=== PATIENT | male | born 2000 | race Caucasian/White ===

== ENCOUNTER → 2019-09-24 | Outpatient (CLI) | payer BC | END | disposition home or self-care (01) | LOC: LABWHC1 07:17 | PROVIDERS: ATTEND Family Medicine | DX: Z20.828 Contact with and (suspected) exposure to other viral communicable diseases (principal) | CPT/HCPCS: 87635 ==

== ENCOUNTER 2020-01-03 02:59 | Emergency (ER) | payer BC ==
[2020-01-03 03:07] VITALS: RESP 18
[2020-01-03] MEDS ORDERED: IBUPROFEN 400 MG TAB PO STA (03:15)
--- NOTE | 2020-01-03 03:19 | ED ---
Fall HPI - General Chief Complaint: Fall Stated Complaint: Knee Pain Time Seen by Provider: 01/03/20 03:06 Source: patient, EMS Mode of arrival: EMS - History of Present Illness Initial Comments: This patient is 19-year-old man who presents to have evaluation of his right knee. The patient states that he had tackled a friend of his to keep the front from running into the street, and when he did he believes his knee was twisted. He complains of pain to the medial aspect along the inferior anterior aspect of the knee. Patient states the pain gets worse if he fully straighten the leg. He is able to bear a little weight but states makes pain worse. No previous injury or surgery. No other injuries MD Complaint: fall -: minutes(s) When Fall Occurred: just prior to arrival Place Fall Occurred: street Loss of Consciousness: none Prolonged Down Time?: no Symptoms Prior to Fall: none Location - Extremities: Right: Knee Severity: moderate Quality: aching Context: alcohol use - Related Data Previous Rx's Medication Instructions Recorded Hydrocodone/Acetaminophen [[place] 1 each PO Q6HR PRN #20 tab 01/03/20 5-325] Ibuprofen 800 mg PO TID #20 tablet 01/03/20 Allergies Allergy/AdvReac Type Severity Reaction Status Date / Time cat dander Allergy Itching Verified 01/03/20 03:13 Review of Systems ROS Statement: Those systems with pertinent positive or pertinent negative responses have been documented in the HPI. ROS Other: All systems not noted in ROS Statement are negative. Respiratory: Denies: dyspnea Cardiovascular: Denies: chest pain Gastrointestinal: Denies: abdominal pain Musculoskeletal: Reports: as per HPI, joint swelling, arthralgia. Denies: back pain Neurological: Denies: headache, weakness, numbness Past Medical History Past Medical History: Seizure Disorder Additional Past Medical History / Comment(s): Pt states he had a grand Mal seizure when he was 10 years old. History of Any Multi-Drug Resistant Organisms: None Reported Additional Past Surgical History / Comment(s): Pt states he had "a screw put in my right ankle when I was 15 years old and it was removed a while later" Past Psychological History: Anxiety, Depression Smoking Status: Former smoker Past Alcohol Use History: Occasional Past Drug Use History: None Reported General Exam Limitations: no limitations General appearance: alert, in no apparent distress Head exam: Present: atraumatic, normocephalic Right Hip exam: Present: normal inspection, full ROM Upper Leg exam: Present: normal inspection, full ROM Knee exam: Present: tenderness, swelling, effusion, pain/laxity with valgus. Absent: full ROM, abrasion, laceration, ecchymosis, deformity, erythema, full knee extension Lower Leg exam: Present: normal inspection, full ROM. Absent: tenderness, swelling Ankle exam: Present: normal inspection, full ROM. Absent: tenderness, swelling Foot/Toe exam: Present: normal inspection, full ROM. Absent: tenderness, swelling Neurovascular tendon exam: Present: no vascular compromise. Absent: pallor Course Vital Signs 01/03/20 01/03/20 03:01 04:06 Temperature 98.6 F 98.0 F Pulse Rate 113 H 97 Respiratory 18 18 Rate Blood Pressure 148/88 147/76 O2 Sat by Pulse 98 98 Oximetry Disposition Clinical Impression: Knee sprain Disposition: HOME SELF-CARE Condition: Good Instructions (If sedation given, give patient instructions): Knee Sprain (DC) Prescriptions: Ibuprofen 800 mg PO TID #20 tablet Hydrocodone/Acetaminophen [[place] 5-325] 1 each PO Q6HR PRN #20 tab PRN Reason: Pain Is patient prescribed a controlled substance at d/c from ED?: Yes Referrals: Lore De MD [Primary Care Provider] - 1-2 days Cj Jones DO [Medical Doctor] - 1-2 days
[2020-01-03] MEDS: HYDROcodone/APAP 5-325MG 1 EACH TAB PO STA ×2 (03:21→03:26)
--- NOTE | 2020-01-03 04:13 | XR ---
EXAMINATION TYPE: XR knee complete RT DATE OF EXAM: 01/03/2020 COMPARISON: NONE HISTORY: Knee pain TECHNIQUE: 4 views FINDINGS: There is no fracture nor dislocation. Joint spaces are normal. There is no evidence of join t effusion. IMPRESSION: Negative right knee exam.
[2020-01-03 04:17] VITALS: BP 147/76; PULSE 97; TEMP 98
== END 2020-01-03 04:50 | disposition home or self-care (01) ==
LOC: EC 02:59
DX: S83.91XA Sprain of unspecified site of right knee, initial encounter (principal); Z87.891 Personal history of nicotine dependence; Z91.048 Other nonmedicinal substance allergy status; X37.1XXA Tornado, initial encounter; Y93.02 Activity, running; Y92.89 Other specified places as the place of occurrence of the external cause
CPT/HCPCS: 73562; 99284; L1830

== ENCOUNTER → 2020-04-05 | Outpatient (CLI) | payer BC | END | disposition home or self-care (01) | LOC: LABWHC1 13:31 | PROVIDERS: ATTEND Family Medicine | DX: Z20.828 Contact with and (suspected) exposure to other viral communicable diseases (principal) | CPT/HCPCS: U0003; C9803 ==

== ENCOUNTER → 2024-07-07 | Outpatient (CLI) | payer BC ==
--- NOTE | 2024-07-08 06:43 | US ---
EXAMINATION TYPE: US scrotum with doppler. DATE OF EXAM: 07/07/2024 COMPARISON: US 2009 CLINICAL INDICATION: Male, 23 years old with history of N50.812 LEFT TESTICULAR PAIN; LT pain and ursula ma 1 month ago TECHNIQUE: Grayscale, color Doppler and spectral Doppler imaging of the scrotum. FINDINGS: EXAM MEASUREMENTS: TESTICLES: Right Testicle: 5.5x2.8x3.6 cm Left Testicle: 5.0x2.4x3.3 cm EPIDIDYMIS HEAD: Right Epididymis: 1.0 cm Left Epididymis: 1.0 cm Doppler performed to assess for testicular vascularity; good bilateral color flow and spectral wavefo karoline are seen. Presence of hydroceles: no Presence of varicoceles: no IMPRESSION: Symmetric blood flow to both testicles is noted. Unremarkable study. [facility], , 07/08/2024 6:40 AM
== END | disposition home or self-care (01) ==
LOC: RADUSWWP 14:29
PROVIDERS: ATTEND Family Medicine
DX: N50.89 Other specified disorders of the male genital organs (principal)
CPT/HCPCS: 76870; 93975

== ENCOUNTER → 2024-08-05 | Outpatient (CLI) | payer BC ==
[2024-08-05 15:50] VITALS: BP 142/80; PULSE 100; RESP 16; TEMP 98.5
--- NOTE | 2024-08-05 16:14 | P.SLEEP ---
History of Present Illness H&P Date: 08/05/24 A healthy 23-year-old male patient coming in for sleep apnea evaluation. Over the past few years, the patient was noted to have snoring and sleep fragmentation where he wakes up choking and gasping for air. He is having difficulty sleeping on his back as the patient wakes up frequently with a chok ing sensation. He is able to generate sleep after arousals without any major difficulties. He goes to bed at around 11 PM wakes up 7:30 AM in the morning. He has excessive fatigue and sleepiness during the day. No sleepwalking. No sleep talking. He is a nose breather. No significant dryness in his mouth. No restlessness in lower extremities. No anxiety or depression. No other comorbidities. 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 He does not fall asleep while driving. His current [place] score is only at 2. He smokes weed occasionally. No substance abuse. No alcoholism. No tobacco consumption. No head trauma. No sleep paralysis. No hallucinations. No cataplexy. He is waking up tired in the morning and is having some difficulty with concentration and memory. No nighttime shortness of breath or chest pain or palpitations. The patient has lost concern amount of weight over the years. His current weight is 177 pounds. He used to work at [employer] where he ate a lot of fast food in his early 20s. His weight was up to 220 pounds and currently is down to 277 with a body mass index of 21.8. Review of Systems Constitutional: Reports daytime sleepiness, Reports fatigue Eyes: denies as per HPI, denies blurred vision, denies bulging eye, denies decreased vision, denies diplopia, denies discharge, denies dry eye, denies irritation, denies itching, denies pain, denies photophobia, denies loss of peripheral vision, denies loss of vision, denies tunnel vision/blind spots Ears: deny: decreased hearing, ear discharge, earache, tinnitus Ears, nose, mouth and throat: Reports as per HPI Breasts: absent: as per HPI, gynecomastia Cardiovascular: Reports as per HPI Respiratory: Reports snoring Gastrointestinal: Reports as per HPI Genitourinary: Reports as per HPI Musculoskeletal: Reports as per HPI Musculoskeletal: absent: ankle pain, ankle stiffness, ankle swelling, as per HPI, elbow pain, elbow stiffness, elbow swelling, foot pain, foot stiffness, foot swelling, hand pain, hand stiffness, hand swelling, hip pain, hip stiffness, hip swelling, knee pain, knee stiffness, knee swelling, shoulder pain, shoulder stiffness, shoulder swelling, wrist pain, wrist stiffness, wrist swelling Integumentary: Reports as per HPI Neurological: Reports as per HPI Psychiatric: Reports change in sleep habits, Reports hypersomnia, Reports sleep disturbances Endocrine: Reports as per HPI Allergic/Immunologic: Reports as per HPI Past Medical History Past Medical History: Seizure Disorder Additional Past Medical History / Comment(s): Pt states he had a grand Mal seizure when he was 10 years old. History of Any Multi-Drug Resistant Organisms: None Reported Additional Past Surgical History / Comment(s): Pt states he had "a screw put in my right ankle when I was 15 years old and it was removed a while later" Past Psychological History: Anxiety, Depression Smoking Status: Former smoker Past Alcohol Use History: Occasional Past Drug Use History: None Reported Medications and Allergies Home Medications Medication Instructions Recorded Confirmed Type Hydrocodone/Acetaminophen [[place] 1 each PO Q6HR PRN #20 tab 01/03/20 Rx 5-325] Ibuprofen 800 mg PO TID #20 tablet 01/03/20 Rx Allergies Allergy/AdvReac Type Severity Reaction Status Date / Time cat dander Allergy Itching Verified 01/03/20 03:13 Physical Exam Vitals: Vital Signs Temp Pulse Resp BP Pulse Ox 08/05/24 15:49 98.5 F 100 16 142/80 97 The patient appeared well nourished and normally developed. Vital signs as documented.Mallampati class IV with crowding of the posterior pharynx. No overbite. Head exam is unremarkable. No scleral icterus or corneal arcus noted. Neck is without jugular venous distension, thyromegaly, or carotid bruits. Carotid upstrokes are brisk bilaterally. Lungs are clear to auscultation and percussion. Cardiac exam reveals the PMI to be normally sized and situated. Rhythm is regular. First and second heart sounds normal. No murmurs, rubs or gallops. Abdominal exam reveals normal bowel sounds, no masses, no organomegaly and no aortic enlargement. Extremities are nonedematous and both femoral and pedal pulses are normal. Examination of the skin revealed no evidence of significant rashes, suspicious appearing nevi or other concerning lesions. Neurologically, the patient is awake and alert and the patient does not have any focal neurological deficit. Cranial nerves are essentially intact. Assessment and Plan Plan: Chronic hypersomnia, current Powers score is at 2 Chronic soft snoring Sleep fragmentation with frequent nocturnal arousals and sleep fragmentation due to choking/gasping Mallampati class IV Body mass index of 21.8. Noted the patient has lost concern amount of weight over the past few years. Plan Suspected obstructive sleep apnea Continue sleeping on his side as the patient is having frequent arousals while sleeping on his back Maintain good sleep hygiene measures Maintain current body weight Avoid alcohol drinking at least 3 hours prior to going to bed Maintain regular sleep schedule Proceed with a screening polysomnography Time with Patient: Greater than 30 Sleep Note - Sleep Data ESS Total: 2 - Sleep Note Sleep Note: Temperature: 98.5 F Pulse Rate: 100 Respiratory Rate: 16 Blood Pressure: 142/80 SpO2: 97 Height: Weight: BMI: Neck Circumference: 14.7
== END ==
LOC: 3 N SLEEP 15:15
PROVIDERS: ATTEND Internal Medicine Critical Care Medicine
DX: G47.10 Hypersomnia, unspecified (principal); R06.83 Snoring; Z91.048 Other nonmedicinal substance allergy status
CPT/HCPCS: 99211

== ENCOUNTER → 2024-08-12 | Outpatient (CLI) | payer BC ==
--- NOTE | 2024-08-12 17:31 | CT ---
EXAMINATION TYPE: CT pelvis w con DATE OF EXAM: 08/12/2024 5:16 PM COMPARISON: None CLINICAL INDICATION: Male, 23 years old with history of K40.90 UNIL INGUINAL HERNIA, W/O OBST OR GANG R, NO; Pelvic groin and testicular pain TECHNIQUE: Axial CT pelvis w con;Sagittal and coronal reformats were created on a separate workstati on. Contrast used:100ml mL of Isovue 300 with IV Contrast, (none if empty) Oral contrast used: with Oral Contrast (none if empty) CT DLP: 609 mGycm, Automated exposure control for dose reduction was used. FINDINGS: BLADDER: No evidence for wall thickening or mass given limitations of exam. REPRODUCTIVE: Unremarkable. ABDOMEN & PELVIS STOMACH AND BOWEL: No evidence of bowel obstruction. The appendix is normal. PERITONEUM/RETROPERITONEUM: No evidence of pneumoperitoneum or free fluid. VASCULATURE: No evidence of aortic aneurysm. MUSCULOSKELETAL: No acute osseous abnormalities LYMPH NODES: No gross evidence for lymphadenopathy. SOFT TISSUE/ABDOMINAL WALL: No inguinal hernias identified. IMPRESSION: No evidence for acute process. No inguinal hernia. No organizing fluid collection, mass or lymphadeno cele. [facility], , 08/12/2024 5:28 PM
== END | disposition home or self-care (01) ==
LOC: RADCTMAIN 14:18
PROVIDERS: ATTEND Family Medicine
DX: K40.90 Unilateral inguinal hernia, without obstruction or gangrene, not specified as recurrent (principal)
CPT/HCPCS: 72193; Q9967

== ENCOUNTER → 2024-09-16 | Outpatient (CLI) | payer BC ==
--- NOTE | 2024-09-28 22:56 | P.PCN ---
Date of Procedure: 09/17/24 Description of Procedure: Home sleep study report Pertinent history A healthy 23-year-old male patient coming in for sleep apnea evaluation. Over the past few years, the patient was noted to have snoring and sleep fragmentation where he wakes up choking and gasping for air. He is having difficulty sleeping on his back as the patient wakes up frequently with a choking sensation. He is able to generate sleep after arousals without any major difficulties. He goes to bed at around 11 PM wakes up 7:30 AM in the morning. He has excessive fatigue and sleepiness during the day. No sleepwalking. No sleep talking. He is a nose breather. No significant dryness in his mouth. No restlessness in lower extremities. No anxiety or depression. No other comorbidities. 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 He does not fall asleep while driving. His current [place] score is only at 2. He smokes weed occasionally. No substance abuse. No alcoholism. No tobacco consumption. No head trauma. No sleep paralysis. No hallucinations. No cataplexy. He is waking up tired in the morning and is having some difficulty with concentration and memory. No nighttime shortness of breath or chest pain or palpitations. The patient has lost concern amount of weight over the years. His current weight is 177 pounds. He used to work at [employer] where he ate a lot of fast food in his early 20s. His weight was up to 220 pounds and currently is down to 277 with a body mass index of 21.8. Pertinent physical findings Body mass index of 21.8 Technical description The [email or web address] Apnea[employer] system was used to complete his home sleep study. This is a preoperative study evaluation. The total recording which was 7 hours and 9 minutes. The study started 1:06 AM and ended at 8:15 AM. There was a total of 6057 minutes of flow monitoring in 6055 minutes of oxygen saturation monitoring Results Respiratory analysis showed a total of 3 obstructive apnea and 1 obstructive hypopnea resulting AHI was 0.6 Oxygenation analysis The baseline pulse ox while awake was 96%, average pulse ox during sleep was 95% and minimum pulse ox was 87% and the patient was able to maintain oxygen saturation above 90% throughout the sleep study. Cardiac summary Average heart rate was 63 with a minimum heart rate of 52 and a maximum heart of 169 Assessment Primary snoring, no evidence of any significant sleep breathing disorder. AHI was 0.6 Chronic hypersomnia with an [place] score of 2 Plan No evidence of any sleep breathing disorder the patient will be reassured. Optimal sleep hygiene measures Avoid sleeping on the back Avoid alcohol drinking at least 3 hours prior to going to bed Maintain regular sleep schedule Follow-up with primary care. No need for CPAP therapy at this point.
== END ==
LOC: 3 N SLEEP 16:57
PROVIDERS: ATTEND Internal Medicine Critical Care Medicine
DX: G47.10 Hypersomnia, unspecified (principal); Z91.048 Other nonmedicinal substance allergy status